=== PATIENT | female | born 1935 | race Caucasian/White ===

== ENCOUNTER 2018-08-06 10:14 | Outpatient (CLI) | payer MEDICARE, OTHER ==
--- NOTE | 2018-08-06 15:08 | XRAY Report ---
Reason: DYSPHAGIA Procedure Date: 08/06/2018 Accession Number: [id number] / [id number] Procedure: FL - Esophogram CPT Code: FULL RESULT: EXAM: BARIUM ESOPHAGRAM EXAM DATE: 08/06/2018 11:24 AM. CLINICAL HISTORY: DYSPHAGIA. COMPARISONS: None. TECHNIQUE: Routine double contrast esophagram. Fluoroscopy Time: 4 minutes 21 seconds. Number of Images: 64. FINDINGS: Swallowing Mechanism: No tracheal aspiration or penetration. Esophageal Motility: Mild presbyesophagus. Mucosa: No strictures. Gastroesophageal Junction: A 13 mm barium tablet stops at the GE junction, which the patient does not feel. With swallows of barium pill passes. No reflux. Other: None. IMPRESSION: 1. No aspiration or stricture. 2. Presbyesophagus. 3. A 13 mm barium tablet transiently stops at the GE junction which the patient does not feel. The pill passes with additional swallows of barium.
== END 2018-08-06 10:15 | disposition home or self-care (01) ==
LOC: DI 10:14
PROVIDERS: ATTEND Internal Medicine
DX: K22.8 Other specified diseases of esophagus (principal)
CPT/HCPCS: 74220

== ENCOUNTER 2020-02-24 15:18 | Emergency (ER) | payer MEDICARE, OTHER ==
[2020-02-24 15:27] VITALS: BP 196/79
--- NOTE | 2020-02-24 16:02 | ED Physician Documentation ---
History of Present Illness - Stated complaint Stated Complaint: HIGH BLOOD PRESSURE - Chief complaint Chief Complaint: General - History obtained from History obtained from: Patient, Friend - History of Present Illness Timing: Today Pain level max: 0 Pain level now: 0 - Additonal information Additional information: 84-year-old female presents to the emergency department stating that she was seen in the orthopedic clinic yesterday told she has high blood pressure and to follow-up with her doctor. Called her doctor's office today who referred her to the emergency department. Patient is fully asymptomatic. No chest pain, no shortness of breath, no headache, no visual changes, no numbness or tingling. Nothing makes it better or worse Review of Systems Constitutional: denies: Fever, Chills Respiratory: denies: Cough GI: denies: Nausea, Vomiting, Diarrhea Skin: denies: Rash Musculoskeletal: denies: Neck pain, Back pain PD PAST MEDICAL HISTORY - Past Medical History Past Medical History: Yes Cardiovascular: Hypertension Neuro: Tremors - Past Surgical History Past Surgical History: No - Present Medications Home Medications: Ambulatory Orders Medication Instructions Recorded Confirmed Cholecalciferol [Vitamin D3] 1 cap DAILY 02/24/20 02/24/20 Mirtazapine 7.5 mg DAILY 02/24/20 02/24/20 Propranolol [Inderal] 10 mg DAILY 02/24/20 02/24/20 - Allergies Allergies/Adverse Reactions: Allergies Allergy/AdvReac Type Severity Reaction Status Date / Time codeine AdvReac Nausea Verified 02/24/20 15:27 fluoxetine [From Prozac] AdvReac Nausea Verified 02/24/20 15:27 - Social History Does the pt smoke?: No Smoking Status: Never smoker Does the pt drink ETOH?: Yes ETOH Use: Wine Does the pt have substance abuse?: No PD ED PE NORMAL - Vitals Vital signs reviewed: Yes - General General: Alert and oriented X 3, No acute distress, Well developed/nourished - HEENT HEENT: Moist mucous membranes - Neck Neck: Supple, no meningeal sign - Cardiac Cardiac: RRR, Strong equal pulses - Respiratory Respiratory: No respiratory distress, Clear bilaterally - Abdomen Abdomen: Soft, Non tender, Non distended - Derm Derm: Warm and dry - Extremities Extremities: No edema - Neuro Neuro: Alert and oriented X 3 - Psych Psych: Normal mood, Normal affect Results - Vitals Vitals: Vital Signs - 24 hr 02/24/20 15:24 Temperature 36.7 C Heart Rate 64 Respiratory 18 Rate Blood Pressure 196/79 H O2 Saturation 99 Oxygen O2 Source Room air PD MEDICAL DECISION MAKING - ED course Complexity details: considered differential, d/w patient ED course: Patient with asymptomatic hypertension. She will monitor her blood pressure at home and follow-up with her doctor. Patient counseled regarding signs and symptoms for which I believe and urgent re-evaluation would be necessary. Patient with good understanding of and agreement to plan and is comfortable going home at this time This document was made in part using voice recognition software. While efforts are made to proofread this document, sound alike and grammatical errors may occur. Departure - Departure Disposition: Home, Self Care Clinical Impression: Hypertension Qualifiers: Hypertension type: unspecified Qualified Code(s): I10 - Essential (primary) hypertension Condition: Good Instructions: ED Hypertension Poss Follow-Up: Terri Hill ARNP, [employer] [Primary Care Provider] - Within 1 week Comments: Track of your blood pressures at home, once a day is fine. Follow-up with your doctor to discuss medications. Return if you develop chest pain, difficulty breathing, numbness or tingling.
== END 2020-02-24 16:12 | disposition home or self-care (01) ==
LOC: ED 15:18
DX: I10 Essential (primary) hypertension (principal)
CPT/HCPCS: 99282; 99284

== ENCOUNTER 2020-06-07 14:40 | Outpatient (CLI) | payer MEDICARE, OTHER ==
[2020-06-07 14:56] LABS: CLARITY,URINE CLEAR (CLEAR); LEUKOCYTE ESTERASE, URINE TRACE (NEGATIVE)
[2020-06-07 14:57] LABS: BILIRUBIN,URINE NEGATIVE (NEGATIVE); GLUCOSE, URINE (UA) NEGATIVE (NEGATIVE); KETONES,URINE (UA) NEGATIVE (NEGATIVE); NITRITE,URINE NEGATIVE (NEGATIVE); OCCULT BLOOD,URINE SMALL (NEGATIVE); PROTEIN,URINE NEGATIVE (NEGATIVE); UROBILINOGEN,URINE 0.2 (NORMAL) E.U./dL (NORMAL)
[2020-06-07 14:58] LABS: BACTERIA,URINE None Seen /HPF (None Seen); CRYSTALS,URINE >50 Calcium Oxalate /LPF; RBC,URINE 0-5 /HPF (0-5); SQUAMOUS EPITHELIAL CELL,UR FEW Squamous (<= Few)
== END 2020-06-07 23:59 | disposition home or self-care (01) ==
LOC: LAB.R 14:40
PROVIDERS: ATTEND Nurse Practitioner
DX: R61 Generalized hyperhidrosis (principal)
CPT/HCPCS: 81001; 81003

== ENCOUNTER 2020-06-27 09:50 | Outpatient (CLI) | payer MEDICARE, OTHER ==
--- NOTE | 2020-06-27 17:26 | DEXA Report ---
PROCEDURE: Dexa Spine and/or Hip INDICATIONS: HX OF NORMAL MENOPAUSE TECHNIQUE: Dual energy x-ray absorptiometry (DXA) was performed on a [employer] System. Regions measur ed are the AP Spine, femoral neck, and if needed forearm. COMPARISON: None. FINDINGS: Lumbar Spine: Bone Mineral Density 1.352 g/cm/cm,T score 1.4, normal Left Hip: Bone Mineral Density 0.6-1 g/cm/cm,T score -3.1, osteoporosis Left Femoral Neck: Bone Mineral Density 0.696 g/cm/cm, T score -2.5, osteoporosis (T score greater or equal to -1.0: NORMAL) (T score from -1.1 to -2.4: OSTEOPENIA) (T score less than or equal to -2.5 to: OSTEOPOROSIS) Impression: The lumbosacral spine bone mineral density evaluated as "normal" likely reflects sequela of artifact of degenerative sclerosis. Osteoporosis is present at the left hip and left femoral neck. Patients with diagnosis of osteoporosis or osteopenia should have regular bone mineral density assess ment. For those eligible for Medicare, routine testing is allowed once every 2 years. Testing frequ ency can be increased for patients who have rapidly progressing disease or for those who are receivin g medical therapy to restore bone mass. Reviewed by: Farrukh Batres MD on 06/27/2020 5:25 PM PST Approved by: Farrukh Batres MD on 06/27/2020 5:25 PM PST Station ID: [id number]
== END 2020-06-27 09:51 | disposition home or self-care (01) ==
LOC: DI 09:50
PROVIDERS: ATTEND Nurse Practitioner
DX: M81.0 Age-related osteoporosis without current pathological fracture (principal); Z78.0 Asymptomatic menopausal state

== ENCOUNTER 2020-07-31 07:00 | Outpatient (CLI) | payer MEDICARE, OTHER ==
[2020-07-31 18:20] LABS: BILIRUBIN,URINE NEGATIVE (NEGATIVE); GLUCOSE, URINE (UA) NEGATIVE (NEGATIVE); KETONES,URINE (UA) NEGATIVE (NEGATIVE); LEUKOCYTE ESTERASE, URINE NEGATIVE (NEGATIVE); NITRITE,URINE NEGATIVE (NEGATIVE); OCCULT BLOOD,URINE TRACE-INTA (NEGATIVE); PROTEIN,URINE NEGATIVE (NEGATIVE); UROBILINOGEN,URINE 0.2 (NORMAL) E.U./dL (NORMAL)
[2020-07-31 18:26] LABS: BACTERIA,URINE None Seen /HPF (None Seen); CLARITY,URINE CLEAR (CLEAR); CRYSTALS,URINE 26-50 Ca Oxalate /LPF; RBC,URINE 0-5 /HPF (0-5); SQUAMOUS EPITHELIAL CELL,UR FEW Squamous (<= Few)
== END 2020-07-31 23:59 | disposition home or self-care (01) ==
LOC: LAB.R 07:00
PROVIDERS: ATTEND Nurse Practitioner
DX: R61 Generalized hyperhidrosis (principal); R30.0 Dysuria
CPT/HCPCS: 81001; 87086

== ENCOUNTER 2020-12-25 08:00 | Outpatient (CLI) | payer MEDICARE, OTHER ==
[2020-12-25 14:33] LABS: BASOPHILS % (AUTO) 0.5 %; EOSINOPHILS # (AUTO) 0.1 10^3/uL (0.0-0.7); EOSINOPHILS % (AUTO) 2.1 %; HCT - HEMATOCRIT 38.5 % (37.0-47.0); HGB - HEMOGLOBIN 12.8 g/dL (12.0-16.0); LYMPHOCYTES # (AUTO) 0.8 10^3/uL (1.5-3.5); LYMPHOCYTES % (AUTO) 18.5 %; MEAN CORPUSCULAR HEMOGLOBIN 30.5 pg (27.0-31.0); MEAN CORPUSCULAR HGB CONC 33.2 g/dL (32.0-36.0); MEAN CORPUSCULAR VOLUME 91.9 fL (81.0-99.0); MEAN PLATELET VOLUME 10.5 fL (7.9-10.8); MONOCYTES # (AUTO) 0.4 10^3/uL (0.0-1.0); MONOCYTES % (AUTO) 8.5 %; NEUTROPHILS % (AUTO) 70.2 %; PLT - PLATELET COUNT 248 10^3/uL (130-450); RED BLOOD COUNT 4.19 10^6/uL (4.20-5.40); RED CELL DISTRIBUTION WIDTH 12.9 % (12.0-15.0); WHITE BLOOD COUNT 4.3 x10^3/uL (4.8-10.8)
[2020-12-25 15:01] LABS: THYROID STIMULATING HORMONE 1.01 uIU/mL (0.34-5.60)
[2020-12-25 15:09] LABS: ALBUMIN 4.4 g/dL (3.2-5.5); ALBUMIN/GLOBULIN RATIO 1.9 (1.0-2.2); ALKALINE PHOSPHATASE 44 IU/L (42-121); ALT ALANINE AMINOTRANSFERASE 16 IU/L (10-60); AST ASPARTATE AMINOTRANSFERASE 19 IU/L (10-42); BILIRUBIN,TOTAL 0.7 mg/dL (0.2-1.0); BUN - BLOOD UREA NITROGEN 15 mg/dL (6-20); CALCIUM 9.3 mg/dL (8.5-10.3); CARBON DIOXIDE - CO2 28 mmol/L (21-32); CHLORIDE 103 mmol/L (101-111); CHOL/HDL RATIO 2.6 (<4.4); CHOLESTEROL 227 mg/dL; CREATININE 0.8 mg/dL (0.4-1.0); GFR - MDRD 68 (>89); GLUCOSE 102 mg/dL (70-100); HDL CHOLESTEROL 88 mg/dL; LDL CHOLESTEROL,CALCULATED 130 mg/dL; LDL/HDL RATIO 1.5 (<4.4); POTASSIUM 4.6 mmol/L (3.5-5.0); SODIUM 137 mmol/L (135-145); TOTAL PROTEIN 6.7 g/dL (6.7-8.2); TRIGLYCERIDES 46 mg/dL; VLDL CHOLESTEROL 9 mg/dL
== END 2020-12-25 23:59 | disposition home or self-care (01) ==
LOC: LAB.WCP 08:00
PROVIDERS: ATTEND Internal Medicine
DX: I10 Essential (primary) hypertension (principal); G25.0 Essential tremor; F41.9 Anxiety disorder, unspecified; F32.9 Major depressive disorder, single episode, unspecified
CPT/HCPCS: 36415; 80053; 80061; 83721; 84443; 85025

== ENCOUNTER 2022-04-23 11:31 | Emergency (ER) | payer MEDICARE, OTHER ==
[2022-04-23 12:05] LABS: BASOPHILS % (AUTO) 0.6 %; EOSINOPHILS # (AUTO) 0.1 10^3/uL (0.0-0.7); EOSINOPHILS % (AUTO) 1.1 %; HCT - HEMATOCRIT 39.8 % (37.0-47.0); HGB - HEMOGLOBIN 12.7 g/dL (12.0-16.0); LYMPHOCYTES # (AUTO) 1.2 10^3/uL (1.5-3.5); LYMPHOCYTES % (AUTO) 21.9 %; MEAN CORPUSCULAR HEMOGLOBIN 29.5 pg (27.0-31.0); MEAN CORPUSCULAR HGB CONC 31.9 g/dL (32.0-36.0); MEAN CORPUSCULAR VOLUME 92.3 fL (81.0-99.0); MONOCYTES # (AUTO) 0.5 10^3/uL (0.0-1.0); MONOCYTES % (AUTO) 8.9 %; NEUTROPHILS # (AUTO) 3.6 10^3/uL (1.5-6.6); NEUTROPHILS % (AUTO) 67.3 %; PLT - PLATELET COUNT 219 10^3/uL (130-450); RED BLOOD COUNT 4.31 10^6/uL (4.20-5.40); WHITE BLOOD COUNT 5.4 x10^3/uL (4.8-10.8)
[2022-04-23 12:21] LABS: ALBUMIN 4.5 g/dL (3.2-5.5); ALBUMIN/GLOBULIN RATIO 1.7 (1.0-2.2); BILIRUBIN,TOTAL 0.9 mg/dL (0.2-1.0); CALCIUM 9.3 mg/dL (8.5-10.3); CREATININE 0.8 mg/dL (0.4-1.0); POTASSIUM 4.2 mmol/L (3.5-5.0); TOTAL PROTEIN 7.1 g/dL (6.7-8.2)
--- NOTE | 2022-04-23 12:43 | XRAY Report ---
PROCEDURE: Chest 1 View X-Ray INDICATIONS: Chest pain TECHNIQUE: One view of the chest was acquired. COMPARISON: None. FINDINGS: Surgical changes and devices: None. Lungs and pleura: No pleural effusions or pneumothorax. Lungs are clear. Mediastinum: Mediastinal contours appear normal. Heart size is normal. Bones and chest wall: No suspicious bony lesions. Overlying soft tissues appear unremarkable. IMPRESSION: No acute cardiopulmonary process demonstrated radiographically. Reviewed by: Mario Pike MD on 04/23/2022 12:42 PM PDT Approved by: Mario Pike MD on 04/23/2022 12:42 PM PDT Station ID: [id number]
--- NOTE | 2022-04-23 13:05 | ED Physician Documentation ---
PD HPI CHEST PAIN - Stated complaint Stated Complaint: CHEST PX - Chief complaint Chief Complaint: Cardiac - History obtained from History obtained from: Patient, Family - History of Present Illness Timing - onset: Enter time (1114), Today Timing - onset during: Rest Timing - duration: Minutes (20) Timing - details: Abrupt onset, Now resolved Quality: Sharp, Pain Location: Substernal, Right chest Radiation: Other (seems to come from the right lateral chest). No: Jaw, Neck, Back, Abdominal, Left upper extremity, Right upper extremity Improved by: Rest Worsened by: No: Exertion, Inspiration, Eating, Movement, Palpation, Position Associated symptoms: No: Shortness of air, Diaphoresis, Nausea, Vomiting, Feeling faint / dizzy, General Weakness, Palpitations, Cough Similar symptoms before: Has not had sx before Recently seen: Not recently seen - Additional information Additional information: 86-year-old female riding in the car with her daughter at rest developed pain in the right side of her chest that radiated toward the middle. She indicates that the pain was severe and lasted maybe 20 minutes. She told her daughter and the eventually made her way to the emergency department. The patient has had resolution of her symptoms now. She states that she was not short of breath she denies any diaphoresis nausea lightheadedness or radiation of the pain other than described. She was at rest when the pain started. She indicates a history of working in the yard yesterday.She has not recently been ill. Review of Systems Constitutional: denies: Fever Eyes: denies: Decreased vision Ears: denies: Ear pain Nose: denies: Congestion Throat: denies: Sore throat Cardiac: reports: Chest pain / pressure. denies: Palpitations, Pedal edema, Calf pain Respiratory: denies: Dyspnea, Cough, Wheezing GI: denies: Abdominal Pain, Nausea, Vomiting, Constipation, Diarrhea : denies: Dysuria, Frequency Skin: denies: Rash Musculoskeletal: denies: Neck pain, Back pain, Extremity pain Neurologic: denies: Generalized weakness, Focal weakness, Numbness PD PAST MEDICAL HISTORY - Past Medical History Cardiovascular: Hypertension Neuro: Tremors - Past Surgical History Past Surgical History: No - Present Medications Home Medications: Ambulatory Orders Medication Instructions Recorded Confirmed Cholecalciferol [Vitamin D3] 1 cap DAILY 02/24/20 04/23/22 Mirtazapine 7.5 mg DAILY 02/24/20 04/23/22 Propranolol [Inderal] 10 mg DAILY 02/24/20 04/23/22 Lisinopril [Zestril] 10 mg PO DAILY 04/23/22 04/23/22 - Allergies Allergies/Adverse Reactions: Allergies Allergy/AdvReac Type Severity Reaction Status Date / Time codeine AdvReac Nausea Verified 04/23/22 11:41 fluoxetine [From Prozac] AdvReac Nausea Verified 04/23/22 11:41 - Social History Does the pt smoke?: No Smoking Status: Never smoker Does the pt drink ETOH?: Yes Does the pt have substance abuse?: No PD ED PE NORMAL - Vitals Vital signs reviewed: Yes (hypertensive) - General General: Alert and oriented X 3, No acute distress, Well developed/nourished - HEENT HEENT: Atraumatic, PERRL, EOMI - Neck Neck: Supple, no meningeal sign, No bony TTP - Cardiac Cardiac: RRR, No murmur - Respiratory Respiratory: No respiratory distress, Clear bilaterally, Other (no chest wall tenderness right left posterior anterior) - Abdomen Abdomen: Soft, Non tender - Back Back: No CVA TTP, No spinal TTP - Derm Derm: Normal color, Warm and dry, No rash - Extremities Extremities: No deformity, No edema - Neuro Neuro: Alert and oriented X 3, 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, No motor deficit, No sensory deficit, Normal speech Eye Opening: Spontaneous Motor: Obeys Commands Verbal: Oriented GCS Score: 15 - Psych Psych: Normal mood, Normal affect Results - Vitals Vitals: Vital Signs - 24 hr 04/23/22 04/23/22 04/23/22 11:37 12:31 13:00 Temperature 36 C L Heart Rate 63 56 L 63 Respiratory 16 15 18 Rate Blood Pressure 194/76 H 179/79 H 180/76 H O2 Saturation 99 100 100 Oxygen O2 Source Room air - EKG (time done) 1142 Rate: Rate (enter#) (58) Intervals: Prolonged NM, LBBB Compare to prior EKG: Old EKG unavailable Computer interpretation: Agree with computer - Labs Labs: Laboratory Tests 04/23/22 04/23/22 04/23/22 11:59 11:59 11:59 WBC 5.4 RBC 4.31 Hgb 12.7 Hct 39.8 MCV 92.3 MCH 29.5 MCHC 31.9 L RDW 13.0 Plt Count 219 MPV 10.0 Neut # (Auto) 3.6 Lymph # (Auto) 1.2 L Thomas # (Auto) 0.5 Eos # (Auto) 0.1 Baso # (Auto) 0.0 Absolute Nucleated RBC 0.00 Nucleated RBC % 0.0 Sodium 136 Potassium 4.2 Chloride 102 Carbon Dioxide 29 Anion Gap 5.0 L BUN 14 Creatinine 0.8 Estimated GFR (MDRD) 68 L Glucose 102 H Calcium 9.3 Total Bilirubin 0.9 AST 18 ALT 16 Alkaline Phosphatase 47 Troponin I High Sens 10.7 B-Natriuretic Peptide Total Protein 7.1 Albumin 4.5 Globulin 2.6 Albumin/Globulin Ratio 1.7 Lipase 44 04/23/22 04/23/22 11:59 14:17 WBC RBC Hgb Hct MCV MCH MCHC RDW Plt Count MPV Neut # (Auto) Lymph # (Auto) Thomas # (Auto) Eos # (Auto) Baso # (Auto) Absolute Nucleated RBC Nucleated RBC % Sodium Potassium Chloride Carbon Dioxide Anion Gap BUN Creatinine Estimated GFR (MDRD) Glucose Calcium Total Bilirubin AST ALT Alkaline Phosphatase Troponin I High Sens 10.3 B-Natriuretic Peptide 119 H Total Protein Albumin Globulin Albumin/Globulin Ratio Lipase - Rads (name of study) chest Radiology: Prelim report reviewed (Impression: No acute cardiopulmonary process demonstrated radiographically.), EMP read indepedently, See rad report PD MEDICAL DECISION MAKING - ED course Complexity details: reviewed old records, reviewed results, re-evaluated patient, considered differential, d/w patient, d/w family ED course: 86-year-old female with a 20-minute episode of right-sided chest pain has complete resolution of her symptoms and has normal troponins. She has no chest wall tenderness she does have a history of working in the garden yesterday. Departure - Departure Disposition: 01 Home, Self Care Clinical Impression: Atypical chest pain Condition: Stable Instructions: ED Chest Pain Atypical Unkn Cause Follow-Up: Ken Dove MD [Physician No Access] - Comments: Teresa, we did not find abnormality to the chest x-ray, EKG or blood work. We did not identify the reason for your pain. My best guess is that this had something to do with working in the yard yesterday. The expectation is resolution of your symptoms.
[2022-04-23 15:08] VITALS: BP 154/75
== END 2022-04-23 15:21 | disposition home or self-care (01) ==
LOC: ED 11:31
DX: R07.89 Other chest pain (principal)
CPT/HCPCS: 36415; 80053; 83690; 83880; 84484; 85025; 93005; 99284

== ENCOUNTER 2022-09-17 08:39 | Outpatient (CLI) | payer MEDICARE, OTHER ==
[2022-09-17 11:51] LABS: BASOPHILS % (AUTO) 0.7 %; HCT - HEMATOCRIT 39.1 % (37.0-47.0); HGB - HEMOGLOBIN 12.4 g/dL (12.0-16.0); LYMPHOCYTES # (AUTO) 0.9 10^3/uL (1.5-3.5); LYMPHOCYTES % (AUTO) 21.9 %; MEAN CORPUSCULAR HEMOGLOBIN 29.5 pg (27.0-31.0); MEAN CORPUSCULAR HGB CONC 31.7 g/dL (32.0-36.0); MEAN CORPUSCULAR VOLUME 93.1 fL (81.0-99.0); MEAN PLATELET VOLUME 10.7 fL (7.9-10.8); MONOCYTES # (AUTO) 0.4 10^3/uL (0.0-1.0); NEUTROPHILS # (AUTO) 2.8 10^3/uL (1.5-6.6); NEUTROPHILS % (AUTO) 66.2 %; PLT - PLATELET COUNT 219 10^3/uL (130-450); RED CELL DISTRIBUTION WIDTH 12.8 % (12.0-15.0); WHITE BLOOD COUNT 4.2 x10^3/uL (4.8-10.8)
[2022-09-17 12:32] LABS: ALBUMIN/GLOBULIN RATIO 1.5 (1.0-2.2); ALKALINE PHOSPHATASE 46 IU/L (42-121); ALT ALANINE AMINOTRANSFERASE 15 IU/L (10-60); AST ASPARTATE AMINOTRANSFERASE 17 IU/L (10-42); BILIRUBIN,TOTAL 0.8 mg/dL (0.2-1.0); BUN - BLOOD UREA NITROGEN 18 mg/dL (6-20); CALCIUM 9.2 mg/dL (8.5-10.3); CARBON DIOXIDE - CO2 30 mmol/L (21-32); CHLORIDE 107 mmol/L (101-111); CHOL/HDL RATIO 2.6 (<4.4); CHOLESTEROL 221 mg/dL; CREATININE 0.7 mg/dL (0.4-1.0); GFR - MDRD 79 (>89); GLUCOSE 101 mg/dL (70-100); HDL CHOLESTEROL 84 mg/dL; LDL CHOLESTEROL,CALCULATED 125 mg/dL; LDL/HDL RATIO 1.5 (<4.4); POTASSIUM 4.3 mmol/L (3.5-5.0); SODIUM 140 mmol/L (135-145); TOTAL PROTEIN 6.7 g/dL (6.7-8.2); TRIGLYCERIDES 60 mg/dL; VLDL CHOLESTEROL 12 mg/dL
== END 2022-09-17 08:40 | disposition home or self-care (01) ==
LOC: LAB.N 08:39
PROVIDERS: ATTEND Nurse Practitioner
DX: I10 Essential (primary) hypertension (principal)
CPT/HCPCS: 36415; 80053; 80061; 83721; 85025

== ENCOUNTER 2023-10-15 12:15 | Outpatient (CLI) | payer MEDICARE, OTHER | END 2023-10-15 12:30 | disposition home or self-care (01) | LOC: LAB.N 12:15 | PROVIDERS: ATTEND Physician Assistant Medical | DX: N30.00 Acute cystitis without hematuria (principal) | CPT/HCPCS: 87086 ==

== ENCOUNTER 2023-11-19 10:42 | Outpatient (CLI) | payer MEDICARE, OTHER ==
[2023-11-19 18:45] LABS: CALCIUM 9.7 mg/dL (8.5-10.3); CREATININE 0.8 mg/dL (0.6-1.3); POTASSIUM 4.3 mmol/L (3.5-4.5)
== END 2023-11-19 10:43 | disposition home or self-care (01) ==
LOC: LAB.N 10:42
PROVIDERS: ATTEND Nurse Practitioner
DX: I10 Essential (primary) hypertension (principal); K21.9 Gastro-esophageal reflux disease without esophagitis; E87.1 Hypo-osmolality and hyponatremia
CPT/HCPCS: 36415; 80048

== ENCOUNTER 2023-12-22 09:30 | Outpatient (CLI) | payer MEDICARE, OTHER ==
[2023-12-22 12:30] LABS: CALCIUM 9.4 mg/dL (8.5-10.3); CREATININE 0.8 mg/dL (0.6-1.3); POTASSIUM 4.1 mmol/L (3.5-4.5)
== END 2023-12-22 09:31 | disposition home or self-care (01) ==
LOC: LAB.N 09:30
PROVIDERS: ATTEND Nurse Practitioner
DX: E87.1 Hypo-osmolality and hyponatremia (principal)
CPT/HCPCS: 36415; 80048